=== PATIENT | male | born 1980 | race Asian ===

== ENCOUNTER 2025-08-09 08:28 | Emergency (ER) | payer MEDICARE ==
[~2025-08-09] VITALS: Ht 167.6 cm; Wt 68.2 kg
--- NOTE | 2025-08-09 08:32 | Physician Documentation ---
History of Present Illness ~ Stated Complaint: Time Seen by MD: 08:30 HPI 44 yo M presenting for mental health evaluation. He reports a history of schizophrenia but is not currently on any medications. He is homeless. He says he has been here for a couple of months. He tells me that he needs to get out of town because he sees people that are wearing black jackets and he thinks that maybe they want to hurt him. He says that when he sees them he thinks about hurting himself or jumping in front of a car. He denies actually hurting himself. He denies any specific self-harm plan or intent currently. He denies any medical problems. He has been eating and drinking, he has an EBT card. When asked him how we can help him today he tells me I need help getting to [facility], and then I would be okay. He asks me if I can give him a map or directions. He has been on psychiatric medications in the past, but not currently. He thinks that he was on Vylar or and maybe Zyprexa. Medication Reconciliation Miscellaneous Medications Home Med List (No Home Medications), (Reported) Review of Systems Constitutional: Denies: fever Psychiatric: Reports: hallucinations Physical Exam Physical Exam General: This is a thin young man, sitting calmly in bed drinking a large ramo ttle of Pepsi HEENT: Atraumatic, oropharynx is moist Heart: Regular rate, normal-appearing peripheral perfusion Neuro: Alert and oriented Psychiatric: Calm and cooperative with exam. Does endorse some visual hallucinations and paranoia. Denies current suicide ideation or specific plan. However he does say that if he leaves he may jump in front of traffic. Does not appear intoxicated. Does appear somewhat disorganized Progress Results/Orders Results/Orders Orders - SERGIO PENA MD Covid19 Binax Poc Result Entry (08/09/25 08:47) Med Rec (08/09/25 12:44) 1799.11 (08/09/25 12:44) Close Observation Level (08/09/25 12:44) Substance Use Navigator (08/09/25 12:44) Completed Orders - SERGIO PENA MD Olanzapine Disint. Tablet (Zyprexa Zydis (08/09/25 09:00) Cbc/Diff (08/09/25 12:44) Drug Screen, Urine (08/09/25 12:44) Ethanol (08/09/25 12:44) TSH (08/09/25 12:44) BMP (08/09/25 12:44) Regular Diet (08/09/25 Dinner) Ua With Microscopic (08/09/25 08:43) Vital Signs 08/09/25 08/09/25 08/09/25 08/09/25 08:33 08:37 13:35 17:30 Temp 98.5 98.4 Pulse 117 95 Resp 18 14 16 B/P (MAP) 109/64 107/63 (78) Pulse Ox 95 97 O2 Flow Rate 0 08/10/25 12:26 Temp 98.4 B/P (MAP) Laboratory Tests Test 08/09/25 08:34 08/09/25 08:43 08/09/25 13:02 SARS-CoV-2 Antigen (Rapid) Negative Urine Specimen Description Urinal Urine Color Yellow Urine Clarity Cloudy Urine pH 5.5 Urine Specific Devol >=1.030 Urine Protein Trace Urine Glucose (UA) Negative Urine Ketones >=80 Urine Occult Blood Negative Urine Nitrite Negative Urine Bilirubin Moderate Urine Urobilinogen 0.2 Urine Leukocyte Esterase Negative Urine RBC 3-10 Urine WBC 0-4 Urine Squamous Epithelial Cells Few Urine Transitional Epithelial Cells Few Urine Amorphous Urates 4+ Urine Bacteria Few Urine Mucus None seen Volume Urine Centrifuged 10 ml Urine Comment Urine Opiates Screen Negative Urine Methadone Screen Negative Urine Fentanyl Screen Negative Urine Barbiturates Screen Negative Urine Phencyclidine Screen Negative Urine Amphetamines Screen Negative Urine Benzodiazepines Screen Negative Urine Cocaine Screen Negative Urine Cannabinoids Screen Negative Drug Screen Comment White Blood Count 8.4 Red Blood Count 4.88 Hemoglobin 15.0 Hematocrit 44.0 Mean Corpuscular Volume 90.1 Mean Corpuscular Hemoglobin 30.7 Mean Corpuscular Hemoglobin Concent 34.0 Red Cell Distribution Width 13.9 Platelet Count 382 Mean Platelet Volume 7.1 L Neutrophils (%) (Auto) 63.7 Lymphocytes (%) (Auto) 27.8 Monocytes (%) (Auto) 6.9 Eosinophils (%) (Auto) 0.7 Basophils (%) (Auto) 0.9 Neutrophils # (Auto) 5.3 Lymphocytes # (Auto) 2.3 Monocytes # (Auto) 0.6 Eosinophils # (Auto) 0.1 Basophils # (Auto) 0.1 CBC Comment Sodium Level 142 Potassium Level 3.5 Chloride Level 108 H Carbon Dioxide Level 27.0 Anion Gap 7 L Blood Urea Nitrogen 19 H Creatinine 0.79 Estimated GFR/1.73 m2 > 90 BUN/Creatinine Ratio 24.1 H Glucose Level 115 H Calcium Level 8.6 Albumin 3.8 Thyroid Stimulating Hormone (TSH) 0.43 Chemistry Comments Ethyl Alcohol Level < 10 Re-Evaluation Re-Evaluation : Re-Evaluation Time: 12:47 Re-Evaluation: Unchanged Progress Re-evaluation: The patient tells me that he does not feel safe to leave, remains paranoid. He tells me that if he leaves during the daytime, he may have to jump in front of a car. At this time he can not contract for safety. He does have significant paranoia. We will proceed with mental health evaluation. Consults/PCP Consults/PCP : Additional Comment Consult: Mental health team consulted for evaluation Medical Decision Making Additional information obtaine: N/A Findings No previous records in the chart Differential Dx:Considerations: Include: Alcohol abuse, Anxiety, Bipolar disorder, Depression, Personality disorder, Schizophrenia, Substance abuse, Suicidal Assessment The patient presents with symptoms of paranoia and vague thoughts of self-harm. Here in the ED he denies being actively suicidal or having a specific plan. His only request is for information on how to get to [facility]. He denies any acute medical concerns. He does seem to have mild symptoms consistent with reported schizophrenia including visual hallucinations and paranoia. He did agree to take a dose of Zyprexa. He is seems acutely disorganized, possibly unable to care for himself, also with some suicidal statements. He was placed on a 1799 hold. Medical screening labs are unremarkable. He is cleared for mental health evaluation. Mental health team evaluated the patient, and we will continue the mental health hold. Plan for likely placement. Departure Impression: Primary Impression: Schizophrenia Additional Impressions: Paranoia Suicidal ideation Additional Instructions: Transfer orders for [facility]: At this time there is no evidence of an emergent medical condition that would preclude (admission/transfer) to a psychiatric unit via [facility] protocol for further psychiatric, as well as medical evaluation and treatment. At this time I have no reason to believe that transfer via [facility] protocol would have serious medical compromise in the patient's health. Signature Scribe Signature: [email or web address] Attestation: SERGIO Thomas MD Aug 09, 2025 08:32
[2025-08-09] MEDS: OLANZapine 5mg rapidly disint. tablet PO ONE (09:09)
[2025-08-09 13:20] LABS: MEAN PLATELET VOLUME 7.1 FL (7.4-10.4); RED CELL DISTRIBUTION WIDTH 13.9 % (11.5-14.5)
[2025-08-09 13:42] LABS: CREATININE 0.79 MG/DL (0.60-1.10); TOTAL CARBON DIOXIDE 27.0 MMOL/L (24-32); eCRCL 110 ML/MIN; eGFR > 90 ML/MIN
[2025-08-09 13:49] LABS: ETHANOL < 10 MG/DL (<10)
[2025-08-09 14:26] LABS: LEUKOCYTE ESTERASE ,URINE NEGATIVE (Neg); NITRITES, URINE NEGATIVE (Neg); OCCULT BLOOD,URINE NEGATIVE (Neg)
[2025-08-09 14:33] LABS: UA COLLECTION TYPE URINAL
[2025-08-09 14:35] LABS: AMORPHOUS URATES 4+; MUCUS STRANDS NONE SEEN /LPF (Neg); SQUAMOUS EPITHELIAL CELL,UR FEW /LPF (FEW)
[2025-08-09 14:41] LABS: URINE AMPHETAMINE SCREEN NEGATIVE (Neg); URINE BARBITUATE SCREEN NEGATIVE (Neg); URINE BENZODIAZEPINES SCREEN NEGATIVE (Neg); URINE CANNABINOID SCREEN NEGATIVE (Neg); URINE COCAINE SCREEN NEGATIVE (Neg); URINE METHADONE SCREEN NEGATIVE (Neg); URINE OPIATE SCREEN NEGATIVE (Neg); URINE PHENCYCLIDINE SCREEN NEGATIVE (Neg)
[2025-08-09 17:30] VITALS: BP 107/63; PULSE 95; RESP 16; O2SAT 97
[2025-08-09] MEDS ORDERED: NO HOME MEDS (18:12)
[2025-08-10 12:26] VITALS: TEMP 98.4
== END 2025-08-10 12:32 ==
LOC: ER 08:30
DX: R45.851 Suicidal ideations (principal); F20.9 Schizophrenia, unspecified; Z59.00 Homelessness unspecified; Z20.822 Contact with and (suspected) exposure to COVID-19; Z79.899 Other long term (current) drug therapy
CPT/HCPCS: 36415; 80048; 80305; 81001; 84443; 85025; 87811; 99285; G0480; 80320